=== PATIENT | male | born 1965 | race Caucasian/White ===

== ENCOUNTER 2017-02-28 07:38 | Emergency (ER) | payer MEDICAID ==
[~2017-02-28] VITALS: Ht 160 cm; Wt 70.0 kg
[2017-02-28] MEDS ORDERED: NO (07:52)
[2017-02-28 08:41] VITALS: BP 135/72
== END 2017-02-28 09:28 | disposition home or self-care (01) ==
LOC: ER 07:38
DX: R20.9 Unspecified disturbances of skin sensation (principal)
CPT/HCPCS: 99281

== ENCOUNTER 2018-09-07 09:20 | Emergency (ER) | payer MEDICAID ==
[~2018-09-07] VITALS: Ht 165.1 cm; Wt 75.0 kg
[~2018-09-07 09:20] MED LIST: NO
[2018-09-07] MEDS ORDERED: HYDROCODONE/ACETAMINOPHEN 5/325MG TABLET PO ONE (10:30)
[2018-09-07] MEDS ORDERED: ONDANSETRON 4MG ODT PO ONE (10:30)
[2018-09-07 13:15] VITALS: BP 155/92
== END 2018-09-07 13:17 | disposition home or self-care (01) ==
LOC: ER 09:20
DX: S42.332A Displaced oblique fracture of shaft of humerus, left arm, initial encounter for closed fracture (principal); W11.XXXA Fall on and from ladder, initial encounter; Y93.89 Activity, other specified; Y92.018 Other place in single-family (private) house as the place of occurrence of the external cause
CPT/HCPCS: 29105; 73030; 73060; 73070; 93971; 99284; Q0162; A4565